=== PATIENT | female | born 1985 | race Caucasian/White ===

== ENCOUNTER 2018-03-03 18:17 | Emergency (ER) | payer OTHER ==
[~2018-03-03] VITALS: Ht 167.6 cm; Wt 68.0 kg
[2018-03-03 19:00] VITALS: BP 125/60
--- NOTE | 2018-03-03 19:51 | PHYS DOC ---
Adult General Chief Complaint Chief Complaint: FOOT INJURY PAIN HPI HPI 32-year-old female presents for evaluation of left foot pain. States that she dropped a kitchen table on her foot earlier today. She just wants to make sure it is not broken. Denies other injuries. SHe is able to ambulate. Review of Systems Review of Systems Constitutional: Denies fever or chills [] Musculoskeletal: Denies back pain or joint pain [] Integument: Denies rash or skin lesions [] Neurologic: Denies headache, focal weakness or sensory changes [] All other systems were reviewed and found to be within normal limits, except as documented in this note. Physical Exam Physical Exam Constitutional: Well developed, well nourished, no acute distress, non-toxic appearance. [] Skin: Warm, dry, no erythema, no rash. [] Back: No tenderness, no CVA tenderness. [] Extremities: Left foot tenderness over third metatarsal, minimal swelling, full range of motion to the ankles and toes, pulses intact and strong and equal] Neurologic: Alert and oriented X 3, normal motor function, normal sensory function, no focal deficits noted. [] Psychologic: Affect normal, judgement normal, mood normal. [] EKG EKG [] Radiology/Procedures Radiology/Procedures X-ray of left foot wet read by myself is negative[] Patient is placed in Gabriel wrap for comfort. Discussed ice and elevation, ibuprofen for discomfort. Follow-up with primary care doctor in 2-3 days, return to ER for new or worsening symptoms. Course & Med Decision Making Course & Med Decision Making Pertinent Labs and Imaging studies reviewed. (See chart for details) [] Dragon Disclaimer Dragon Disclaimer This electronic medical record was generated, in whole or in part, using a voice recognition dictation system. Departure Departure Impression: Primary Impression: Contusion Disposition: HOME, SELF-CARE Condition: STABLE Referrals: NO PCP (PCP) Patient Instructions: Contusion, [id number] BAKARI CANELA DIRECTOR OF AUTOMATION Mar 03, 2018 19:51
--- NOTE | 2018-03-04 03:20 | RAD ---
Examination: 3 views of the left foot HISTORY: History of dropped table on the foot COMPARISON: None available FINDINGS: The alignment of the tarsal joints, tarsometatarsal joints, metatarsophalangeal joints, interphalangeal joints grossly appears unremarkable. There is no obvious acute fracture identified. Mild soft tissue swelling identified dorsal to the metatarsals likely secondary to soft tissue injury. IMPRESSION: 1. No acute osseous findings. 2. Mild soft tissue swelling identified dorsal to the metatarsal likely secondary to soft tissue injury. Electronically signed by: Emile Hurley MD (03/04/2018 3:16 AM) [facility]
[2018-03-04] MEDS ORDERED: NAPR-683 PO (19:16)
== END 2018-03-03 20:15 | disposition home or self-care (01) ==
LOC: ER 18:17
DX: S90.32XA Contusion of left foot, initial encounter (principal); W20.8XXA Other cause of strike by thrown, projected or falling object, initial encounter; Y93.89 Activity, other specified; Y92.090 Kitchen in other non-institutional residence as the place of occurrence of the external cause; Y99.8 Other external cause status
CPT/HCPCS: 73630; 99284

== ENCOUNTER 2018-03-04 17:51 | Emergency (ER) | payer OTHER ==
[~2018-03-04] VITALS: Ht 167.6 cm; Wt 68.0 kg
[2018-03-04 18:01] VITALS: BP 121/70
--- NOTE | 2018-03-04 18:42 | PHYS DOC ---
Past Medical History Past Medical History: No Pertinent History Past Surgical History: Cholecystectomy Additional Past Surgical Histo: breast augmentation Alcohol Use: None Drug Use: None Adult General Chief Complaint Chief Complaint: FOOT INJURY PAIN HPI HPI 32-year-old female presents for reevaluation of left foot injury. Patient was seen in this emergency department by myself yesterday after dropping a kitchen table on top of her left foot. She had a negative foot x-ray at that time. She reports today she has had increased swelling and bruising, increased pain. She has iced it and tried to keep it up at times throughout the day but she works in a custodial and must move around frequently. Review of Systems Review of Systems Constitutional: Denies fever or chills [] Eyes: Denies change in visual acuity, redness, or eye pain [] HENT: Denies nasal congestion or sore throat [] Integument: Denies rash or skin lesions [] Neurologic: Denies headache, focal weakness or sensory changes [] Endocrine: Denies polyuria or polydipsia [] All other systems were reviewed and found to be within normal limits, except as documented in this note. Physical Exam Physical Exam Constitutional: Well developed, well nourished, no acute distress, non-toxic appearance. [] Skin: Warm, dry. [] Back: No tenderness, no CVA tenderness. [] Extremities: Dorsal aspect of left foot is bruised and swollen, very tender and painful to touch, strong equal palpable pedal pulses are present, capillary refill is less than 3 seconds Neurologic: Alert and oriented X 3, normal motor function, normal sensory function, no focal deficits noted. [] Psychologic: Affect normal, judgement normal, mood normal. [] Current Patient Data Vital Signs Vital Signs Date Time Temp Pulse Resp B/P (MAP) Pulse Ox O2 Delivery O2 Flow Rate FiO2 03/04/18 19:46 92 16 99 Room Air 03/04/18 18:01 99.1 121/70 (87) 99.1 EKG EKG [] Radiology/Procedures Radiology/Procedures X-ray of the left foot is negative for fracture, soft tissue swelling is noted. Gabriel wrap is replaced and Crutches are provided at patient's request.[] Course & Med Decision Making Course & Med Decision Making Pertinent Labs and Imaging studies reviewed. (See chart for details) []Discussion with patient, but is likely more swollen and bruised as it is 24 hours after the injury now, she has been up and walking on it at work throughout the day. Patient is given a 2 day work note to stay home, ice and elevate the extremity, follow up with her primary care doctor. She would like some crutches at this time to help with ambulation. She has no signs or symptoms of compartment syndrome and she is stable for discharge home. Neurovascular intact. Strict return precautions discussed with patient who verbalizes understanding of discharge instructions. Dragon Disclaimer Dragon Disclaimer This electronic medical record was generated, in whole or in part, using a voice recognition dictation system. Departure Departure Impression: Primary Impression: Contusion Disposition: HOME, SELF-CARE Condition: STABLE Referrals: NO PCP (PCP) Patient Instructions: Contusion Scripts Naproxen (NAPROSYN) 500 Mg Tablet 500 MG PO BID, #20 TAB 0 Refills Prov: BAKARI CANELA APRN 03/04/18 BAKARI CANELA APRN Mar 04, 2018 18:42
[2018-03-04] MEDS ORDERED: NAPR-683 PO (19:16)
--- NOTE | 2018-03-06 11:09 | RAD ---
Left foot, 3 views, 03/04/2018: HISTORY: Pain and swelling No fracture or dislocation is identified. No destructive bony lesion is seen. There is moderate diffuse soft tissue swelling. IMPRESSION: No acute bony abnormality is detected. Electronically signed by: Pratik Nieto MD (03/06/2018 11:05 AM) [facility]
== END 2018-03-04 19:47 | disposition home or self-care (01) ==
LOC: ER 17:51
DX: S90.32XA Contusion of left foot, initial encounter (principal); W20.8XXA Other cause of strike by thrown, projected or falling object, initial encounter; Y93.89 Activity, other specified; Y92.89 Other specified places as the place of occurrence of the external cause; Y99.8 Other external cause status
CPT/HCPCS: 73630; 99284